=== PATIENT | male | born 1990 | race Caucasian/White ===

== ENCOUNTER → 2019-10-07 08:50 | Outpatient (CLI) | payer MEDICAID, SELFPAY ==
[2019-10-08 14:53] LABS: Covid-19 Nasal PCR Sendout Lex Not Detected
== END ==
PROVIDERS: PCP Family Medicine; Visit Provider Family Medicine
DX: Z03.818 Encounter for observation for suspected exposure to other biological agents ruled out (principal)
CPT/HCPCS: U0004